=== PATIENT | male | born 1960 | race Caucasian/White ===

== ENCOUNTER 2021-02-10 08:38 | Inpatient (IN) | payer BC, OTHER ==
[~2021-02-10] VITALS: Ht 172.7 cm; Wt 115.7 kg
[~2021-02-10 08:38] MED LIST: CRESTOR10 MG PO; NORCO 7.5-3251 EACH PO
[2021-02-10 08:41] VITALS: BP 139/81
--- NOTE | 2021-02-10 08:52 | NUR ---
TAO [phone] ([facility])
[2021-02-10 09:40] LABS: ABSOLUTE NEUTROPHILS 4.8 thou/uL (1.4-8.2); BASOPHILS 0.5 % (0.0-2.0); EOSINOPHILS 2.4 % (0.0-3.0); HEMATOCRIT 44.9 % (42.0-52.0); HEMOGLOBIN 14.5 gm/dL (14.0-18.0); LYMPHOCYTES 36.1 % (24.0-44.0); MCH 29.3 pg (26.0-34.0); MCHC 32.3 g/dL (28.0-37.0); MCV 90.9 fL (80.0-100.0); MONOCYTES 10.5 % (1.0-8.0); PLATELET COUNT 326 thou/uL (150-400); POLYS 50.5 % (36.0-66.0); RBC 4.94 mil/uL (4.50-6.00); RDW 12.8 % (10.5-14.5); WBC 9.4 thou/uL (4.0-11.0)
[2021-02-10 09:44] LABS: CALCIUM 8.4 mg/dL (8.5-10.1); CREATININE 1.3 mg/dL (0.7-1.3); POTASSIUM 3.7 mmol/L (3.5-5.1)
[2021-02-10 09:53] LABS: ALBUMIN 3.7 g/dL (3.4-5.0); TOTAL BILIRUBIN 0.8 mg/dL (0.2-1.0); TOTAL PROTEIN 6.9 g/dL (6.4-8.2)
[2021-02-10 12:09] LABS: MAGNESIUM 1.9 mg/dL (1.8-2.4); PHOSPHORUS 4.2 mg/dL (2.6-4.7)
--- NOTE | 2021-02-10 12:10 | EKG ---
[address] [place] [address] ELECTROCARDIOGRAM REPORT Name: MACARIO RIVERA Room #: 170-5 ADM IN M.R.#: [id number] Admission: 02/10/21 Attend Phys: Alvin Rosen MD Discharge: Date of : 60 Report #: [id number] [facility] ED Test Date: 2021-02-10 Test Time: 08:43:40 Pat Name: MACARIO RIVERA Department: Room: 170 Gender: M Development Scientist: MINERVA : 1960 Requested By: Ovidio Betancur Order Number: [id number] MD: Que Hall Measurements Intervals [place] Rate: 83 P: 8 ME: 149 QRS: -10 QRSD: 98 T: 8 QT: 393 QTc: 462 Interpretive Statements Sinus rhythm RSR' in V1 or V2, right VCD Nonspecific T abnormalities, diffuse leads Compared to ECG 09/10/2012 23:15:48 T-wave abnormality now present Electronically Signed On 02-10-2021 12:10:02 SHAPE HAND by Que Hall [email or web address] <ELECTRONICALLY SIGNED> By: Que Hall MD, [facility] 02/10/21 1210 0843 Que Hall MD, [facility] /EPI
[2021-02-10 12:13] LABS: SALICYLATE < 2.8 mg/dL (2.8-20.0)
[2021-02-10 12:28] LABS: APTT 26.6 Seconds (24.5-32.8); INR 0.94; PROTIME 10.3 Seconds (10.5-12.1)
[2021-02-10 14:20] LABS: CHOLESTEROL 165 mg/dL (<200); HDL CHOLESTEROL 40 mg/dL (>40); LDL CHOLESTEROL 106 mg/dL (<100); TC:HDL 4.1 Ratio (Not establshd); TRIGLYCERIDE 99 mg/dL (<150); VLDL 20 mg/dL (<40)
[2021-02-10 14:45] LABS: FOLIC ACID 4.5 ng/mL (8.6-58.9)
[2021-02-10 16:04] VITALS: BP 128/72
[2021-02-10 16:31] VITALS: BP 133/48
[2021-02-10 17:06] VITALS: BP 124/78
--- NOTE | 2021-02-10 18:33 | NUR ---
Received pt to room 207 from ER around 1645. Pt A&O x4, on RA, SA on the monitor. VSS. Pt reports he has not gotten up since being in the hospital. Instructed pt to call before getting up for first time. Med rec completed, pt unsure of dosage on medication, asked pt to have roommate send him pic to get accurate dosing. Admission assessment completed, forms signed & posted in chart.
[2021-02-10 19:45] VITALS: BP 129/79
--- NOTE | 2021-02-10 21:53 | NUR ---
PT ALERT AND ORIENTED X 4. DENIES ANY DYSPNEA,CHESTPAIN OR DIZZINESS. HE IS UP AD PHYLLIS IN ROOM. DENIES ANY PAIN.SINUS ARYTHMIA ON TELEMETRY STBLE BLOOD SUGAR. MANTAINED ON ROOM AIR.NO FURTHER CONCERNS AT THIS TIME. HE CALLS APPROPRIATELY.
[2021-02-10 23:52] VITALS: BP 138/74
[2021-02-11 04:00] VITALS: BP 136/88
[2021-02-11 07:30] VITALS: BP 118/56
[2021-02-11] MEDS ORDERED: MECLIZINE HCL25 MG PO (10:23)
[2021-02-11] MEDS ORDERED: ASPIRIN325 PO (10:23)
[2021-02-11] MEDS ORDERED: VITAMIN D325 MC2 PO (13:01)
[2021-02-11] MEDS ORDERED: FOLIC ACID1 MG PO (13:01)
[2021-02-11] MEDS ORDERED: MECLIZINE HCL25 M1 PO ×2 (13:04→13:06)
[2021-02-11 15:30] VITALS: BP 126/77
[2021-02-11 15:48] VITALS: BP 126/77
--- NOTE | 2021-02-11 16:09 | NUR ---
PT ASSESSED AT START OF SHIFT. NO FURTHER C/O DIZZINESS OR SLURRED SPEECH. STATES FEELS PRETTY MUCH BACK TO HIMSELF W/ EXCEPTION TO MUSCLE WEAKNESS FROM BEING IN BED FOR 2 DAYS. AMBULATED THE HALLS SEVERAL TIMES W/O DIFFICULTY. DR. MORROW IN THIS AFTERNOON TO SEE PT. RECOMMENDED PT HAVE SLEEP STUDY RE SLEEP APNEA. PT STATED HE HAS CPAP MACHINE HE'S USED FOR ONE YEAR BUT HAD STOPPED USING RECENTLY FOR HAVING TO CLEAN DAILY. STATES HE ALSO HAS CHANGED JOBS AND HAS GAINED MORE WEIGHT. HE AGREED TO WEAR CPAP WHENEVER HE SLEEPS. DC'D AT THIS TIME W/ ALL BELONGINGS.
== END 2021-02-11 16:41 | disposition home or self-care (01) | DRG 69 ==
LOC: ER 08:38 → EROBS 11:28 → 2N 16:52
PROVIDERS: Emergency Medicine; ADMIT Hospitalist; ATTEND Hospitalist
DX: G45.9 Transient cerebral ischemic attack, unspecified (principal); Z20.822 Contact with and (suspected) exposure to COVID-19; Z79.899 Other long term (current) drug therapy; E78.5 Hyperlipidemia, unspecified; E11.9 Type 2 diabetes mellitus without complications
CPT/HCPCS: 10081